=== PATIENT | female | born 1985 | race Caucasian/White ===

== ENCOUNTER 2021-01-09 15:15 | Emergency (ER) | payer OTHER, MEDICAID, SELFPAY ==
[2021-01-09 15:19] VITALS: BP 176/96; PULSE 117; RESP 24; TEMP 36.7; O2SAT 100
== END 2021-01-09 17:10 | disposition left against medical advice (07) ==
PROVIDERS: Emergency Provider Emergency Medicine
CPT/HCPCS: 99281

== ENCOUNTER 2021-01-11 19:43 | Emergency (ER) | payer OTHER, MEDICAID, SELFPAY | END 2021-01-11 19:54 | disposition left against medical advice (07) | PROVIDERS: Emergency Provider Emergency Medicine ==